=== PATIENT | female | born 1930 | race Caucasian/White ===

== ENCOUNTER 2016-06-25 10:59 | Emergency (ER) | payer MEDICARE ==
[2016-06-25 11:21] VITALS: TEMP 99.1
[2016-06-25] MEDS ORDERED: ACETAMINOPHEN TAB 325 MG TAB PO STA (11:41)
--- NOTE | 2016-06-25 11:45 | ED ---
General Adult HPI - General Chief complaint: Upper Respiratory Infection Stated complaint: FLU LIKE SYMPTOMS, SINUS, DRAINAGE Time Seen by Provider: 06/25/16 11:00 Source: patient, RN notes reviewed Mode of arrival: wheelchair Limitations: no limitations - History of Present Illness Initial comments: This is a 86-year-old female who comes in complaining of a 2 day history of quite a bit of nasal drainage. Patient states she has a low-grade fever and is having difficulty sleeping last night because of all the drainage. Patient states she coughed all night long and didn't get much sleep. Patient denies any shortness of breath patient denies any pain anywhere. Patient denies chest pain or palpitations. Patient states she is coughing up a little bit of sputum. Patient denies any abdominal pain patient denies nausea vomiting diarrhea per patient denies headache patient denies numbness weakness - Related Data Home Medications Medication Instructions Recorded Confirmed Amiodarone [Cordarone] 100 mg PO DAILY 06/25/16 06/25/16 Apixaban [Eliquis] 5 mg PO BID 06/25/16 06/25/16 Atorvastatin [Lipitor] 10 mg PO HS 06/25/16 06/25/16 Levothyroxine Sodium [Synthroid] 100 mcg PO DAILY 06/25/16 06/25/16 Losartan/Hydrochlorothiazide 1 tab PO DAILY 06/25/16 06/25/16 [Losartan-Hctz 100-25 mg Tab] Sertraline HCl [Zoloft] 50 mg PO DAILY 06/25/16 06/25/16 Previous Rx's Medication Instructions Recorded Azithromycin [Zithromax Tri-Albert] 500 mg PO DAILY #3 tab 06/25/16 Allergies Allergy/AdvReac Type Severity Reaction Status Date / Time No Known Allergies Allergy Unverified 06/25/16 12:25 Review of Systems ROS Statement: Those systems with pertinent positive or pertinent negative responses have been documented in the HPI. ROS Other: All systems not noted in ROS Statement are negative. Past Medical History Past Medical History: Atrial Fibrillation, Hyperlipidemia, Hypertension, Thyroid Disorder History of Any Multi-Drug Resistant Organisms: None Reported Past Surgical History: Hysterectomy Past Psychological History: Depression Smoking Status: Never smoker Past Alcohol Use History: None Reported Past Drug Use History: None Reported General Exam - General Exam Comments Initial Comments: GENERAL: Patient is well-developed and well-nourished. Patient is nontoxic and well- hydrated and is in mild distress. ENT: Neck is soft and supple. No significant lymphadenopathy is noted. Oropharynx is clear. Moist mucous membranes. Neck has full range of motion without eliciting any pain. EYES: The sclera were anicteric and conjunctiva were pink and moist. Extraocular movements were intact and pupils were equal round and reactive to light. Eyelids were unremarkable. PULMONARY: Unlabored respirations. Good breath sounds bilaterally. No audible rales rhonchi or wheezing was noted. CARDIOVASCULAR: There is a regular rate and rhythm without any murmurs gallops or rubs. ABDOMEN: Soft and nontender with normal bowel sounds. SKIN: Skin is clear with no lesions or rashes and otherwise unremarkable. NEUROLOGIC: Patient is alert and oriented x3. Cranial nerves II through XII are grossly intact. Motor and sensory are also intact. Normal speech, volume and content. Symmetrical smile. MUSCULOSKELETAL: Normal extremities with adequate strength and full range of motion. LYMPHATICS: No significant lymphadenopathy is noted PSYCHIATRIC: Normal psychiatric evaluation. Limitations: no limitations Course Vital Signs 06/25/16 06/25/16 06/25/16 11:18 11:47 12:53 Temperature 99.1 F Pulse Rate 85 75 Respiratory 18 16 18 Rate Blood Pressure 132/65 O2 Sat by Pulse 94 L 96 Oximetry Medical Decision Making - Medical Decision Making Chest x-ray shows no acute abnormality. Disposition Clinical Impression: Upper respiratory infection Disposition: HOME SELF-CARE Condition: Good Instructions: Upper Respiratory Infection (ED) Prescriptions: Azithromycin [Zithromax Tri-Albert] 500 mg PO DAILY #3 tab Referrals: None,Stated [Primary Care Provider] - 1-2 days Time of Disposition: 12:46
--- NOTE | 2016-06-25 12:06 | XR ---
EXAMINATION TYPE: XR chest 2V DATE OF EXAM: 06/25/2016 11:53 AM COMPARISON: Prior chest x-ray November 08, 2012. HISTORY: Shortness of breath, cough, and fever. TECHNIQUE: Frontal and lateral views of the chest are obtained. FINDINGS: There is chronic parenchymal change without suspicious focal air space opacity, pleural ef fusion, or pneumothorax seen. The cardiac silhouette size is within normal limits with atherosclerot ic and ectatic thoracic aorta. The osseous structures are demineralized. Underlying S-shaped scolio sis is present. IMPRESSION: Chronic parenchymal change without acute pulmonary process.
[2016-06-25 13:12] VITALS: BP 154/72; PULSE 72; RESP 16
== END 2016-06-25 13:12 | disposition home or self-care (01) ==
LOC: EC 10:59
DX: J06.9 Acute upper respiratory infection, unspecified (principal); Z79.899 Other long term (current) drug therapy; Z79.01 Long term (current) use of anticoagulants; E78.5 Hyperlipidemia, unspecified; I48.91 Unspecified atrial fibrillation; E07.9 Disorder of thyroid, unspecified; I10 Essential (primary) hypertension; F32.9 Major depressive disorder, single episode, unspecified
CPT/HCPCS: 71020; 99283

== ENCOUNTER 2017-10-31 20:52 | Emergency (ER) | payer MEDICARE ==
[2017-10-31 21:14] VITALS: RESP 18
[2017-10-31] MEDS ORDERED: SODIUM CHLORIDE 0.9% 1,000 ML IV ONE (21:32)
[2017-10-31] MEDS ORDERED: ACETAMINOPHEN TAB 500 MG TAB PO STA (21:32)
[2017-10-31] MEDS ORDERED: MORPHINE SULFATE 2 MG/ML SYRINGE IVP STA (21:44)
[2017-10-31 22:55] LABS: Basophils % (A) 1 %; Eosinophils # (A) 0.1 k/uL (0-0.7); Eosinophils % (A) 2 %; HGB 14.7 gm/dL (11.4-16.0); Lymphocytes # (A) 1.5 k/uL (1.0-4.8); Lymphocytes % (A) 18 %; MCH 26.8 pg (25.0-35.0); MCHC 31.9 g/dL (31.0-37.0); Mean Platelet Volume 7.8; Monocytes # (A) 0.7 k/uL (0-1.0); Monocytes % (A) 8 %; Neutrophils % (A) 71 %; Platelet Count 220 k/uL (150-450); RBC 5.48 m/uL (3.80-5.40); RDW 15.2 % (11.5-15.5); WBC 8.4 k/uL (3.8-10.6)
[2017-10-31 23:07] LABS: Albumin 3.5 g/dL (3.5-5.0); Calcium 9.4 mg/dL (8.4-10.2); Potassium 3.1 mmol/L (3.5-5.1); Total Bilirubin 0.5 mg/dL (0.2-1.3); Total Protein 6.1 g/dL (6.3-8.2)
--- NOTE | 2017-10-31 23:16 | XR ---
EXAMINATION TYPE: XR chest 2V DATE OF EXAM: 10/31/2017 COMPARISON: 06/25/2016 HISTORY: Chest pain TECHNIQUE: Frontal and lateral views of the chest are obtained. FINDINGS: There is no heart failure nor confluent pneumonic infiltrate. There is linear density in t he left lower lobe. There is no sign of a pneumothorax. I see no rib fracture. There is deformity of the left humeral head consistent with old fracture. Thoracic aorta is atheromatous. IMPRESSION: Subsegmental atelectasis in the left lower lobe is new compared to old exam. No heart fa ilure.
--- NOTE | 2017-10-31 23:17 | XR ---
EXAMINATION TYPE: XR pelvis AP view DATE OF EXAM: 10/31/2017 COMPARISON: NONE HISTORY: Pain after a fall TECHNIQUE: Single view FINDINGS: The pelvic ring is intact. Proximal femurs and hip joints are intact. Sacroiliac joints cassie ear normal. IMPRESSION: No acute abnormality of the pelvis.
--- NOTE | 2017-10-31 23:21 | CT ---
EXAMINATION TYPE: CT brain wo con DATE OF EXAM: 10/31/2017 COMPARISON: 01/11/2013 HISTORY: Fall. CT DLP: 1047.1 mGycm Automated exposure control for dose reduction was used. FINDINGS: There is diffuse cerebral cortical atrophy. There is no mass effect nor midline shift. There is no si gn of intracranial hemorrhage. IMPRESSION: CEREBRAL ATROPHY. NO ACUTE INTRACRANIAL ABNORMALITY. NO CHANGE.
[2017-11-01] MEDS ORDERED: POTASSIUM BICARBONATE/CIT AC 20 MEQ TABLET.EFF PO ONE (00:15)
--- NOTE | 2017-11-01 00:30 | ED ---
Fall HPI - General Chief Complaint: Fall Stated Complaint: Fall Time Seen by Provider: 10/31/17 21:19 Source: patient Mode of arrival: EMS - History of Present Illness Initial Comments: 87 years O female yesterday fell yesterday 24 hours ago she landed on something hard surface and now complaining about the left-sided chest wall pain no head injury no loss of consciousness she is on a blood thinners no abdominal pain no frequency urgency dysuria no injury to upper or lower extremities - Related Data Home Medications Medication Instructions Recorded Confirmed Amiodarone [Cordarone] 100 mg PO DAILY 06/25/16 06/25/16 Apixaban [Eliquis] 5 mg PO BID 06/25/16 06/25/16 Atorvastatin [Lipitor] 10 mg PO HS 06/25/16 06/25/16 Levothyroxine Sodium [Synthroid] 100 mcg PO DAILY 06/25/16 06/25/16 Losartan/Hydrochlorothiazide 1 tab PO DAILY 06/25/16 06/25/16 [Losartan-Hctz 100-25 mg Tab] Sertraline HCl [Zoloft] 50 mg PO DAILY 06/25/16 06/25/16 Previous Rx's Medication Instructions Recorded Azithromycin [Zithromax Tri-Albert] 500 mg PO DAILY #3 tab 06/25/16 Allergies Allergy/AdvReac Type Severity Reaction Status Date / Time No Known Allergies Allergy Unverified 10/31/17 21:14 Review of Systems ROS Statement: Those systems with pertinent positive or pertinent negative responses have been documented in the HPI. ROS Other: All systems not noted in ROS Statement are negative. Past Medical History Past Medical History: Atrial Fibrillation, Hyperlipidemia, Hypertension, Thyroid Disorder History of Any Multi-Drug Resistant Organisms: None Reported Past Surgical History: Hysterectomy Past Psychological History: Depression Smoking Status: Never smoker Past Alcohol Use History: None Reported Past Drug Use History: None Reported General Exam - General Exam Comments Initial Comments: General: The patient is awake and alert, in no distress, and does not appear acutely ill. Looks very healthy 87 GCS is 15 Skin: Skin is warm and dry and no rashes or lesions are noted. Eye: Pupils are equal, round and reactive to light, extra-ocular movements are intact; there is normal conjunctiva bilaterally. Ears, nose, mouth and throat: There are moist mucous membranes and no oral lesions. Neck: The neck is supple, there is no tenderness or JVD. No focal tenderness noticed over the cervical spine area Cardiovascular: There is a irregularly irregular Respiratory: To auscultation bilateral, no wheezing no rhonchi no distress respiratory cruz noticed, mildly tender to palpate along the left lateral wall of the chestsubcutaneous emphysema noticed Gastrointestinal: Soft, non-distended, non-tender abdomen without masses or organomegaly noted. There is no rebound or guarding present. Bowel sounds are unremarkable. Back: There is no tenderness to palpation in the midline. There is no obvious deformity. Musculoskeletal: Normal ROM, no tenderness, There is no pedal edema. There is no calf tenderness or swelling. No cords were appreciated. Neurological: CN II-XII intact, Cranial nerves III through XII are intact. There are no obvious motor or sensory deficits. Coordination appears grossly intact. Speech is normal. Psychiatric: Cooperative, appropriate mood & affect, normal judgment. Limitations: no limitations Course Vital Signs 10/31/17 10/31/17 21:09 22:35 Temperature 97.8 F Pulse Rate 77 72 Respiratory 18 18 Rate Blood Pressure 170/81 175/89 O2 Sat by Pulse 93 L 95 Oximetry ALLERGIES atrial fibrillation with ventricular rate 75 QRS duration is 134 QT/ QTc is 464/580 review of this EKG does not reveal any ST elevation or ST depression noticed right bundle branch block EKG has atrial fibrillation and potassium is 3.1) is 1.10 troponin is negative if orthostatics are within normal range she be discharged home for the pain management she could alternate or she can take Tylenol 1 g by mouth every 6 when necessary narcotics be avoided to avoid the fall and fractures. He is staying at her daughter's that she wants to go home and daughters are comfortable with that idea Medical Decision Making - Lab Data Result diagrams: 10/31/17 22:33 10/31/17 22:33 Lab Results 10/31/17 10/31/17 10/31/17 Range/Units 22:33 22:33 22:33 WBC 8.4 (3.8-10.6) k/uL RBC 5.48 H (3.80-5.40) m/uL Hgb 14.7 (11.4-16.0) gm/dL Hct 46.0 (34.0-46.0) % MCV 84.0 (80.0-100.0) fL MCH 26.8 (25.0-35.0) pg MCHC 31.9 (31.0-37.0) g/dL RDW 15.2 (11.5-15.5) % Plt Count 220 (150-450) k/uL Neutrophils % 71 % Lymphocytes % 18 % Monocytes % 8 % Eosinophils % 2 % Basophils % 1 % Neutrophils # 6.0 (1.3-7.7) k/uL Lymphocytes # 1.5 (1.0-4.8) k/uL Monocytes # 0.7 (0-1.0) k/uL Eosinophils # 0.1 (0-0.7) k/uL Basophils # 0.0 (0-0.2) k/uL Sodium 141 (137-145) mmol/L Potassium 3.1 L (3.5-5.1) mmol/L Chloride 103 (98-107) mmol/L Carbon Dioxide 28 (22-30) mmol/L Anion Gap 10 mmol/L BUN 19 H (7-17) mg/dL Creatinine 1.10 H (0.52-1.04) mg/dL Est GFR (CKD-EPI)AfAm 51 (>60 ml/min/1.73 sqM) Est GFR (CKD-EPI)NonAf 45 (>60 ml/min/1.73 sqM) Glucose 109 H (74-99) mg/dL Calcium 9.4 (8.4-10.2) mg/dL Total Bilirubin 0.5 (0.2-1.3) mg/dL AST 26 (14-36) U/L ALT 30 (9-52) U/L Alkaline Phosphatase 94 (38-126) U/L Creatine Kinase 199 H (30-135) U/L Troponin I <0.012 (0.000-0.034) ng/mL Total Protein 6.1 L (6.3-8.2) g/dL Albumin 3.5 (3.5-5.0) g/dL Disposition Clinical Impression: Fall, Chest wall pain Disposition: HOME SELF-CARE Instructions: Fall Prevention for Older Adults (ED) Is patient prescribed a controlled substance at d/c from ED?: No Referrals: None,Stated [Primary Care Provider] - 1-2 days
[2017-11-01] MEDS ORDERED: MORPHINE SULFATE 2 MG/ML SYRINGE IVP STA (00:53)
[2017-11-01 02:36] VITALS: PULSE 80
[2017-11-01 03:17] VITALS: BP 156/72; TEMP 98
== END 2017-11-01 03:17 | disposition home or self-care (01) ==
LOC: EC 20:52
DX: R07.89 Other chest pain (principal); I48.91 Unspecified atrial fibrillation; E78.5 Hyperlipidemia, unspecified; I10 Essential (primary) hypertension; E07.9 Disorder of thyroid, unspecified; F32.9 Major depressive disorder, single episode, unspecified; Z79.01 Long term (current) use of anticoagulants; Z79.899 Other long term (current) drug therapy; Z53.8 Procedure and treatment not carried out for other reasons; W19.XXXA Unspecified fall, initial encounter
CPT/HCPCS: 36415; 93005; 80053; 82550; 84484; 85025; 72170; 71046; 70450; 99285; 96374; 96375; 96361 ×5; J2270 ×2